=== PATIENT | female | born 1985 | race Caucasian/White ===

== ENCOUNTER 2020-10-12 12:27 | Emergency (ER) | payer MEDICAID ==
[~2020-10-12] VITALS: Ht 167.6 cm; Wt 136.4 kg
[2020-10-12 12:37] VITALS: TEMP 98.5
[2020-10-12 14:25] VITALS: BP 132/72; PULSE 67
== END 2020-10-12 14:28 | disposition home or self-care (01) ==
LOC: COL.ER 12:27
DX: K21.9 Gastro-esophageal reflux disease without esophagitis (principal)